=== PATIENT | female | born 1960 | race Caucasian/White ===

== ENCOUNTER → 2018-05-01 | Outpatient (CLI) | payer OTHER ==
--- NOTE | 2018-05-03 08:51 | MM ---
Reason for exam: screening (asymptomatic). Last mammogram was performed 2 years and 1 month ago. History: Patient is postmenopausal. Family history of breast cancer in maternal aunt at age 56. Physical Findings: A clinical breast exam by your physician is recommended on an annual basis and results should be correlated with mammographic findings. MG Screening Mammo w CAD Bilateral CC and MLO view(s) were taken. Prior study comparison: March 22, 2016, bilateral MG screening mammo w CAD. March 11, 2015, bilateral MG screening mammo w CAD. There are scattered fibroglandular densities. No significant changes when compared with prior studies. ASSESSMENT: Benign, BI-RAD 2 RECOMMENDATION: Routine screening mammogram of both breasts in 1 year.
== END | disposition home or self-care (01) ==
LOC: RADMAMWWP 09:10
PROVIDERS: ATTEND Family Medicine
DX: Z12.31 Encounter for screening mammogram for malignant neoplasm of breast (principal)
CPT/HCPCS: 77067

== ENCOUNTER → 2018-10-08 | Outpatient (CLI) | payer OTHER ==
--- NOTE | 2018-10-08 14:37 | XR ---
EXAMINATION TYPE: XR chest 2V DATE OF EXAM: 10/08/2018 COMPARISON: Chest x-ray March 22, 2016 HISTORY: Unspecified asthma. TECHNIQUE: Frontal and lateral views of the chest are obtained. FINDINGS: There is no focal air space opacity, pleural effusion, or pneumothorax seen. The cardiac silhouette size is stable and upper limits of normal. The osseous structures are intact. Cholecyste ctomy clips are noted on lateral view. IMPRESSION: No acute cardiopulmonary process. No significant change from prior.
== END | disposition home or self-care (01) ==
LOC: RADXRMAIN 13:57
PROVIDERS: ATTEND Family Medicine
DX: J45.901 Unspecified asthma with (acute) exacerbation (principal)
CPT/HCPCS: 71046

== ENCOUNTER → 2018-12-30 | Outpatient (CLI) | payer OTHER | END | disposition home or self-care (01) | LOC: RADECHMAIN 13:54 | PROVIDERS: ATTEND Family Medicine | DX: Z53.9 Procedure and treatment not carried out, unspecified reason (principal) ==

== ENCOUNTER → 2018-12-31 | Outpatient (CLI) | payer OTHER ==
--- NOTE | 2018-12-31 14:17 | EST ---
EXERCISE STRESS AGE: 58 SEX: f HT: 62" WT: 204 PROTOCOL: Gordno Stress Test STAGE: 2 DURATION OF EXERCISE: 6:00 HEART RATE REST: 74 BLOOD PRESSURE REST: 155/69 MAXIMUM HEART RATE ACHIEVED: 149 MAXIMUM BLOOD PRESSURE: 178/81 85% MPHR: 136 100% MPHR: 160 METS: 7.3 INDICATIONS: Shortness of breath CLINICAL INFORMATION: Baseline EKG revealed a normal sinus rhythm with voltage criteria for LVH. Patient walked on a standard Gordon protocol for 6 minutes, achieved a maximal heart rate of 149 beats per minute which is more than 85% of predicted maximal. She developed some fatigue and shortness of breath but did not have any angina. Upsloping nonspecific ST- segment changes were noted but these changes could be related to underlying LVH as well. By EKG criteria, this is an inconclusive stress test because of upsloping nonspecific ST-segment changes. Possibly patient has some underlying hypertension. LVH changes were noted. There was no angina and exercise capacity was limited. If ischemia is strongly suspected a stress echocardiogram with a nuclear scan will be useful. MARY / DIN: [id number] /
== END | disposition home or self-care (01) ==
LOC: RADNMMAIN 08:40
PROVIDERS: ATTEND Family Medicine
DX: R94.39 Abnormal result of other cardiovascular function study (principal); R06.02 Shortness of breath
CPT/HCPCS: 93017

== ENCOUNTER → 2019-09-02 | Outpatient (CLI) | payer OTHER ==
--- NOTE | 2019-09-05 10:59 | MM ---
Reason for exam: screening (asymptomatic). Last mammogram was performed 1 year and 4 months ago. History: Patient is postmenopausal. Family history of breast cancer in maternal aunt at age 56. Took hormonal contraceptives for 20 years. Physical Findings: A clinical breast exam by your physician is recommended on an annual basis and results should be correlated with mammographic findings. MG Screening Mammo w CAD Bilateral CC and MLO view(s) were taken. Prior study comparison: May 01, 2018, bilateral MG screening mammo w CAD. March 22, 2016, bilateral MG screening mammo w CAD. The breast tissue is almost entirely fat. No significant changes when compared with prior studies. ASSESSMENT: Benign, BI-RAD 2 RECOMMENDATION: Routine screening mammogram of both breasts in 1 year.
== END | disposition home or self-care (01) ==
LOC: RADMAMWWP 09:15
PROVIDERS: ATTEND Family Medicine
DX: Z12.31 Encounter for screening mammogram for malignant neoplasm of breast (principal)
CPT/HCPCS: 77067

== ENCOUNTER → 2022-04-10 | Outpatient (CLI) | payer OTHER ==
--- NOTE | 2022-04-10 18:34 | BD ---
EXAMINATION TYPE: Axial Bone Density DATE OF EXAM: 04/10/2022 COMPARISON: NEW TO BONE DENSITY........BASELINE STUDY CLINICAL HISTORY: 61 years year old Female. ICD-10 CODE: Z78.[address] Height: 61.4 Weight: 197 FRAX RISK QUESTIONS: Family History (Parent hip fracture): YES Glucocorticoids (More than 3mos): YES (Ex: prednisone, prednisolone, methylprednisolone, dexamethasone, and hydrocortisone). Secondary Osteoporosis: YES 3. Menopause before 45: YES RISK FACTORS HISTORY OF: Family History of Osteoporosis: YES, MOTHER AND HER SISTERS, WITH FX TO HIP Diet low in dairy products/other sources of calcium: YES, ALLERGIC Postmenopausal woman: YES, AT ABOUT 40 YRS....TOTAL HYST Take estrogen and/or progesterone medications: YES, FOR SHORT TIME ONLY Hyperparathyroidism: NO Adrenal Insufficiency: NO MEDICATIONS: Prednisone or other steroids: YES, NOT ALWAYS, PRN Thyroid Medications: YES, SYNTHROID PRODUCT FOR ABOUT 30 YRS Additional Medications: CHOLESTEROL MEDS, VIT D, CALCIUM, Additional History: CHOLESTEROL, THYROID, ASTHMA, COPD WITH ILLNESSES, EXAM MEASUREMENTS: Bone mineral densitometry was performed using the [email or web address] System. Bone mineral density as measured about the Lumbar spine is: ----- L1-L4(G/cm2): 0.940 T Score Values are as follows: ----- L1: -2.1 ----- L2: -2.9 ----- L3: -1.7 ----- L4: -1.7 ----- L1-L4: -2.0 Bone mineral density IS A BASELINE STUDY Bone mineral density about the R hip (g/cm2): 0.880 Bone mineral density about the L hip (g/cm2): 0.840 T Score values are as follows: -----R Neck: -1.9 -----L Neck: -2.7 -----R Total: -1.0 -----L Total: -1.3 Bone mineral density IS A BASELINE STUDY FRAX%s: The graph provided illustrates a 19.7% chance for a major osteoporotic fx and a 4.8% chance f or the hips probability for fx in 10 years time. IMPRESSION: Osteoporosis (T Score less than -2.5). There is increased fracture risk and therapy is usually indicated based on age. Re-Screen 1-2 years. NOTE: T-SCORE=SD OF THE YOUNG ADULT MEAN.
--- NOTE | 2022-04-11 08:34 | MM ---
Reason for Exam: Screening (asymptomatic). Last mammogram was performed 2 year(s) and 8 month(s) ago. Patient History: Menarche at age 12. First Full-Term at age 19. Left ovary removed at age 38. Right ovary removed at age 38. Hysterectomy at age 38. Postmenopausal. Patient has history of breast feeding. Patient used Hormonal Contraceptives for 20 years. Maternal aunt had breast cancer, age 56. Risk Values: Abeba 5 year model risk: 1.3%. NCI Lifetime model risk: 5.5%. Prior Study Comparison: 03/22/2016 Bilateral Screening Mammogram, [facility]. 05/01/2018 Bilateral Screening Mammogram, [facility]. 09/02/2019 Bilateral Screening Mammogram, [facility]. Tissue Density: The breast tissue is almost entirely fat. Findings: Analyzed By CAD. Benign-appearing calcification bilaterally. There is no suspicious group of microcalcifications or new suspicious mass in either breast. Overall Assessment: Negative, BI-RAD 1 Management: Screening Mammogram of both breasts in 1 year. A clinical breast exam by your physician is recommended on an annual basis and results should be correlated with mammographic findings. Electronically signed and approved by: Dennis Barth DO
== END | disposition home or self-care (01) ==
LOC: RADMAMWWP 13:51
PROVIDERS: ATTEND Family Medicine
DX: Z12.31 Encounter for screening mammogram for malignant neoplasm of breast (principal); Z78.0 Asymptomatic menopausal state
CPT/HCPCS: 77067; 77080

== ENCOUNTER → 2022-12-11 | Outpatient (CLI) | payer OTHER | END | disposition home or self-care (01) | LOC: LABWHC1 11:13 | PROVIDERS: ATTEND Registered Nurse | DX: R07.89 Other chest pain (principal); R00.1 Bradycardia, unspecified | CPT/HCPCS: 36415; 93005 ==

== ENCOUNTER → 2023-01-22 | Outpatient (CLI) | payer OTHER ==
--- NOTE | 2023-01-22 12:39 | XR ---
EXAMINATION TYPE: XR lumbosacral spine 5 views DATE OF EXAM: 01/22/2023 Comparison: None Clinical History: 62-year-old female R25.2, M79.1 Findings: Cholecystectomy clips. 5 lumbar type vertebral bodies. Hypertrophic facet arthropathy lower lumbar sp ine. There is grade 1, immediately grade 2 anterolisthesis at L4-L5. Vertebral body heights are prese rved. Mild multilevel degenerative disc disease. Impression: Hypertrophic facet arthropathy mid to lower lumbar spine with grade 1, nearly grade 2 anterolisthesis at L4-L5. This appears to be secondary to degenerative facet arthropathy. No vertebral compression c ollapse.
--- NOTE | 2023-01-22 16:16 | XR ---
EXAMINATION TYPE: XR cervical spine comp DATE OF EXAM: 01/22/2023 COMPARISON: None HISTORY: Postsurgical pain, spasms and numbness TECHNIQUE: 5 view cervical spine FINDINGS: The disc spaces are present C4-5 C5-6. Prevertebral space is normal. Posterior spinal lamel lar line is intact. Some mild left foraminal narrowing at C5-6 may be present. Remaining foramen appe ar patent. Odontoid is limited by overlying occiput. Vertebral body heights are preserved. IMPRESSION: 1. Mild foraminal narrowing left C5-6. 2. Disc spacer C4-5 C5-6.
--- NOTE | 2023-01-22 16:18 | XR ---
EXAMINATION TYPE: XR thoracic spine 2V DATE OF EXAM: 01/22/2023 COMPARISON: None HISTORY: Pain TECHNIQUE: 3 view thoracic spine FINDINGS: Thoracic vertebral bodies appear intact. There is some side bending towards the right. Disc heights appear preserved. Spondylosis is present. Vertebral body heights are preserved. IMPRESSION: 1. Mild right side bending thoracic spine
== END | disposition home or self-care (01) ==
LOC: RADXRMAIN 11:50
PROVIDERS: ATTEND Family Medicine
DX: G89.18 Other acute postprocedural pain (principal); M43.16 Spondylolisthesis, lumbar region; M47.816 Spondylosis without myelopathy or radiculopathy, lumbar region; M99.71 Connective tissue and disc stenosis of intervertebral foramina of cervical region; M50.121 Cervical disc disorder at C4-C5 level with radiculopathy
CPT/HCPCS: 72050; 72070; 72110

== ENCOUNTER → 2023-02-10 | Outpatient (CLI) | payer OTHER ==
--- NOTE | 2023-02-11 08:23 | MR ---
EXAMINATION TYPE: MR correa/cyril wo con DATE OF EXAM: 02/10/2023 12:48 PM COMPARISON: NONE HISTORY: Neck and lower back pain, BUE/BLE radiculopathy. Multiplanar MultiSpin echo imaging of the cervical spine was performed. Comparison: none C2-C3: No evidence for degenerative disc disease. No disc bulge/herniation or protrusion. No Canal stenosis. Foramina are patent bilaterally. C3-C4: No evidence for degenerative disc disease. No disc bulge/herniation or protrusion. No Canal stenosis. Foramina are patent bilaterally. C4-C5: Postsurgical changes discectomy with intervertebral body prosthesis noted. Postoperative align ment is anatomic. There is extensive streak artifact limiting evaluation. C5-C6: Postsurgical changes discectomy with intervertebral body prosthesis noted. Postoperative align ment is anatomic. There is extensive streak artifact limiting evaluation. C6-C7: Moderate degenerative disc space narrowing with posterior disc bulge paracentral to the right. There is no evidence for central stenosis. Right foraminal encroachment is noted. C7-T1: No evidence for degenerative disc disease. No disc bulge/herniation or protrusion. No Canal stenosis. Foramina are patent bilaterally. Cervical segments are intact. There is normal alignment. Cervical spinal cord is of normal signal. Craniovertebral junction relationships are within normal limits. IMPRESSION: 1. Postoperative changes at C4-5 and C5-6 discectomy and intervertebral body prosthesis. Extensive st reak artifact limits evaluation at each of these levels. 2. Right paracentral disc bulge C6-7 resulting in mild right foraminal encroachment. EXAMINATION TYPE: MR cunningham wo con DATE OF EXAM: 02/10/2023 12:48 PM COMPARISON: NONE HISTORY: Neck and lower back pain, BUE/BLE radiculopathy. Multiplanar, MultiSpin echo imaging of the lumbar spine was performed. L1-L2: Normal disc appearance without desiccation. No herniation, protrusion or disc bulging. No ca nal stenosis is present. Foramina are patent bilaterally. L2-L3: Normal disc appearance without desiccation. No herniation, protrusion or disc bulging. No ca nal stenosis is present. Foramina are patent bilaterally. L3-L4: Normal disc appearance without desiccation. No herniation, protrusion or disc bulging. No ca nal stenosis is present. Foramina are patent bilaterally. L4-L5: There is grade 1 anterolisthesis measuring 4 mm of L4 and L5 related to facet joint arthropath y. Mild disc desiccation is noted with posterior disc bulge. No evidence for disc herniation or any. No evidence for central stenosis. Mild left greater than right neural foraminal encroachment. L5-S1: Normal disc appearance without desiccation. No herniation, protrusion or disc bulging. No ca nal stenosis is present. Foramina are patent bilaterally. Lumbar segments are intact. No paraspinal masses are identified. Conus medullaris has a normal appe arance. IMPRESSION: 1. Mild degenerative disc disease with grade 1 anterolisthesis of L4 on L5 as discussed above.
== END | disposition home or self-care (01) ==
LOC: RADMRIMAIN 10:46
PROVIDERS: ATTEND Registered Nurse
DX: M50.323 Other cervical disc degeneration at C6-C7 level (principal); M43.16 Spondylolisthesis, lumbar region; M51.36 Other intervertebral disc degeneration, lumbar region; M47.819 Spondylosis without myelopathy or radiculopathy, site unspecified; M50.20 Other cervical disc displacement, unspecified cervical region; M06.4 Inflammatory polyarthropathy; R25.2 Cramp and spasm
CPT/HCPCS: 72141; 72148

== ENCOUNTER → 2023-07-09 | Outpatient (CLI) | payer OTHER ==
--- NOTE | 2023-07-10 18:55 | MM ---
Reason for Exam: Screening (asymptomatic). Last mammogram was performed 1 year(s) and 2 month(s) ago. Patient History: Menarche at age 12. First Full-Term at age 19. Left ovary removed at age 38. Right ovary removed at age 38. Hysterectomy at age 38. Postmenopausal. Patient has history of breast feeding. Patient used Hormonal Contraceptives for 20 years. Maternal aunt had breast cancer, age 56. Risk Values: Abeba 5 year model risk: 1.3%. NCI Lifetime model risk: 5.3%. Prior Study Comparison: 05/01/2018 Bilateral Screening Mammogram, [facility]. 09/02/2019 Bilateral Screening Mammogram, [facility]. 04/10/2022 Bilateral MG screening mammo w CAD, [facility]. Tissue Density: There are scattered fibroglandular densities. Findings: Analyzed By CAD. Chronic nodularity on the right. There is no suspicious group of microcalcifications or new suspicious mass in either breast. Overall Assessment: Benign, BI-RAD 2 Management: Screening Mammogram of both breasts in 1 year. . Patient should continue monthly self-breast exams. A clinical breast exam by your physician is recommended on an annual basis. This exam should not preclude additional follow-up of suspicious palpable abnormalities. Note on Abeba scores and lifetime risk: 1. A Abeba score greater than 3% is considered moderate risk. If this is the case, consider specialist referral to assess eligibility for a risk reducing agent. 2. If overall lifetime risk for the development of breast cancer is 20% or higher, the patient may qualify for future screening with alternating mammogram and breast MRI. Electronically signed and approved by: Rick Khan M.D. Radiologist
== END | disposition home or self-care (01) ==
LOC: RADMAMWWP 16:49
PROVIDERS: ATTEND Family Medicine
DX: Z12.31 Encounter for screening mammogram for malignant neoplasm of breast (principal); Z78.0 Asymptomatic menopausal state; Z80.3 Family history of malignant neoplasm of breast
CPT/HCPCS: 77067

== ENCOUNTER → 2023-12-27 | Outpatient (CLI) | payer MEDICARE, OTHER ==
--- NOTE | 2023-12-27 16:53 | CT ---
EXAMINATION TYPE: CT chest w con DATE OF EXAM: 12/27/2023 COMPARISON: No prior CT this location HISTORY: F/U NODULE CT DLP: 611 mGycm, Automated exposure control for dose reduction was used. CONTRAST: Performed injected with 100 mL of Isovue 300. TECHNIQUE: Axial images were obtained at 5 mm thick sections. Reconstructed images are reviewed on Fwd: Power computer in the coronal plane. FINDINGS: Portion of the thyroid visualized is normal. No suspicious lung nodules or focal infiltrates are present. Mild infiltrate posterior right lung ba se. No enlarged mediastinal or hilar adenopathy is evident. The ascending aorta diameter at the level o f the main pulmonary artery is 3.4 cm. The main pulmonary artery diameter at the bifurcation is 2.[address] sections are obtained through the upper abdomen. Abdomen is essentially unremarkable. IMPRESSION: 1. Mild infiltrate dependant right lung base. Correlate for atelectasis.
== END | disposition home or self-care (01) ==
LOC: RADCTMAIN 16:00
PROVIDERS: ATTEND Family Medicine
DX: R91.8 Other nonspecific abnormal finding of lung field (principal); R91.1 Solitary pulmonary nodule
CPT/HCPCS: 71260; Q9967

== ENCOUNTER → 2024-04-24 | Outpatient (CLI) | payer MEDICARE | END | disposition home or self-care (01) | LOC: LABPRL 12:00 | PROVIDERS: ATTEND Family Medicine | DX: Z00.00 Encounter for general adult medical examination without abnormal findings (principal); E11.9 Type 2 diabetes mellitus without complications; E03.9 Hypothyroidism, unspecified; E78.00 Pure hypercholesterolemia, unspecified | CPT/HCPCS: 80053; 80061; 82306; 83036; 84443; 85027 ==

== ENCOUNTER → 2024-07-08 | Outpatient (CLI) | payer MEDICARE ==
--- NOTE | 2024-07-08 17:40 | BD ---
EXAMINATION TYPE: Axial Bone Density DATE OF EXAM: 07/08/2024 CLINICAL HISTORY: 63 years old Female. ICD-10 CODE: Z78.0 ASYMP [place] M81.0 OSTE , Z78.0 Height: 61" Weight: 167lbs FRAX RISK QUESTIONS: Alcohol (3 or more units per day): No Family History (Parent hip fracture): No Glucocorticoids (More than 3mos): No (Ex: prednisone, prednisolone, methylprednisolone, dexamethasone, and hydrocortisone). History of Fracture in Adulthood: No Secondary Osteoporosis: 1. Type 1 Diabetes: No 2. Hyperthyroidism: No 3. Menopause before 45: Unknown 4. Malnutrition: No 5. Chronic liver disease: No Rheumatoid Arthritis: No Current Tobacco Use: No RISK FACTORS HISTORY OF: Hip Fracture (Right/Left): No Spine Fracture: No History of Wrist Fracture: No Surgery to Spine/Hip(right/left)/Wrist (right/left): No MEDICATIONS: Thyroid Medications: Yes Which medication: [employer] Thyroid How Long: On this med for a couple of months Osteoporosis Medications: No EXAM MEASUREMENTS: Bone mineral densitometry was performed using the [employer] System. Bone mineral density as measured about the Lumbar spine is: ----- L1-L4(G/cm2): 0.892 T Score Values are as follows: ----- L1: -2.5 ----- L2: -2.9 ----- L3: -2.2 ----- L4: -2.3 ----- L1-L4: -2.4 Z Score Values are as follows: ----- L1: -1.2 ----- L2: -1.7 ----- L3: -1.0 ----- L4: -1.1 ----- L1-L4: -1.2 Bone mineral density has: decreased -5.1% since study of: 04/10/2022 Bone mineral density about the R hip (g/cm2): 0.814 Bone mineral density about the L hip (g/cm2): 0.818 T Score values are as follows: -----R Neck: -1.7 -----L Neck: -2.1 -----R Total: -1.5 -----L Total: -1.5 Z Score values are as follows: -----R Neck: -0.4 -----L Neck: -0.8 -----R Total: -0.6 -----L Total: -0.6 Bone mineral density has: decreased -5.1% since study of: 04/10/2022 FRAX%s: The graph provided illustrates a 10.7% chance for a major osteoporotic fx and a 1.7% chance f or the hips probability for fx in 10 years time. IMPRESSION: Osteopenia (T Score between -2.5 and -1). Measurements are borderline on osteoporosis in the lumbar s pine. There is slightly increased risk of fracture and the patient may be considered for treatment. Re-Screen 2-5 years. NOTE: T-SCORE=SD OF THE YOUNG ADULT MEAN. [facility], , 07/08/2024 5:38 PM
--- NOTE | 2024-07-09 12:25 | MM ---
Reason for Exam: Screening (asymptomatic). Last screening mammogram was performed 12 month(s) ago. Patient History: Menarche at age 12. First Full-Term at age 19. Left ovary removed at age 38. Right ovary removed at age 38. Hysterectomy at age 38. Postmenopausal. Patient has history of breast feeding. Patient used Hormonal Contraceptives for 20 years. Maternal aunt had breast cancer, age 56. Risk Values: Abeba 5 year model risk: 0.9%. NCI Lifetime model risk: 3.5%. Prior Study Comparison: 03/22/2016 Bilateral Screening Mammogram, [facility]. 05/01/2018 Bilateral Screening Mammogram, [facility]. 09/02/2019 Bilateral Screening Mammogram, [facility]. 04/10/2022 Bilateral MG screening mammo w CAD, [facility]. 07/09/2023 Bilateral MG screening mammo w CAD, [facility]. Tissue Density: There are scattered areas of fibroglandular density. Findings: Analyzed By CAD. Chronic nodularity on the right. There is no suspicious group of microcalcifications or new suspicious mass in either breast. Overall Assessment: Benign, BI-RAD 2 Management: Screening Mammogram of both breasts in 1 year. . Patient should continue monthly self-breast exams. A clinical breast exam by your physician is recommended on an annual basis. This exam should not preclude additional follow-up of suspicious palpable abnormalities. Note on Abeba scores and lifetime risk: 1. A Abeba score greater than 3% is considered moderate risk. If this is the case, consider specialist referral to assess eligibility for a risk reducing agent. 2. If overall lifetime risk for the development of breast cancer is 20% or higher, the patient may qualify for future screening with alternating mammogram and breast MRI. [facility], , 07/09/2024 12:22 PM. Electronically signed and approved by: Rick Khan M.D. Radiologist
== END | disposition home or self-care (01) ==
LOC: RADBDWWP 10:36
PROVIDERS: ATTEND Family Medicine
CPT/HCPCS: 77063; 77067; 77080